=== PATIENT | male | born 1965 | race Caucasian/White ===

== ENCOUNTER → 2025-06-09 06:47 | Outpatient (REF) | payer SELFPAY | LOC: RAD 06:47 | PROVIDERS: ATTENDING PHYSICIAN Family Medicine | DX: I10 Essential (primary) hypertension (principal); E78.2 Mixed hyperlipidemia; E11.29 Type 2 diabetes mellitus with other diabetic kidney complication; I50.9 Heart failure, unspecified | CPT/HCPCS: 75571 ==